=== PATIENT | male | born 1990 | race Caucasian/White ===

== ENCOUNTER 2016-10-06 20:42 | Emergency (ER) | payer SELFPAY ==
[2016-10-06 20:54] VITALS: BP 124/82
[2016-10-06] MEDS ORDERED: Acetaminophen/oxyCODONE 325-5 MG Tab PO ONE (20:57)
--- NOTE | 2016-10-06 21:15 | EDM.PDOC ---
ED HPI GENERAL MEDICAL PROBLEM - General Chief Complaint: Lower Extremity Injury/Pain Stated Complaint: Ankle injury Time Seen by Provider: 10/06/16 21:00 Source of Information: Reports: Patient, RN Notes Reviewed History Limitations: Reports: No Limitations - History of Present Illness INITIAL COMMENTS - FREE TEXT/NARRATIVE: 26 year old male presents to the ED with right ankle injury. He was playing basketball when another player landed on his ankle, causing his foot to rotate inwards. His pain is mostly to the medial aspect of the ankle. He's unable to bear weight. No numbness or tingling. Right Ankle Pain Score (Numeric/FACES): 10 - Related Data Allergies Allergy/AdvReac Type Severity Reaction Status Date / Time No Known Allergies Allergy Verified 10/06/16 20:59 Social & Family History - Tobacco Use Smoking Status *Q: Never Smoker Second Hand Smoke Exposure: Yes - Caffeine Use Caffeine Use: Reports: None - Recreational Drug Use Recreational Drug Use: No Review of Systems - Review of Systems Review Of Systems: See Below Musculoskeletal: Reports: Joint Swelling Neurological: Reports: No Symptoms. Denies: Numbness, Tingling, Weakness ED EXAM, GENERAL - Physical Exam Exam: See Below Exam Limited By: No Limitations General Appearance: Alert, WD/WN, Anxious, Mild Distress Extremities: Other (swelling with deformity to right medial malleolous, CMS intact, ) Neurological: Alert, Oriented, Normal Cognition, No Motor/Sensory Deficits Skin Exam: Warm, Dry, Intact Course - Vital Signs Last Recorded V/S: Last Vital Signs Temp 98.3 F 10/06/16 20:49 Pulse 83 10/06/16 20:49 Resp 20 10/06/16 20:49 BP 124/82 10/06/16 20:49 Pulse Ox 97 10/06/16 20:49 - Orders/Labs/Meds Orders: Active Orders 24 hr Category Date Time Status Ankle Min 3V Rt [CR] Stat Exams 10/06/16 20:57 Ordered Meds: Medications Discontinued Medications Generic Name Dose Route Start Last Admin Trade Name Freq PRN Reason Stop Dose Admin Oxycodone/Acetaminophen 1 tab 10/06/16 20:57 10/06/16 21:02 Percocet 325-5 Mg PO 10/06/16 20:58 1 tab ONETIME ONE Administration - Re-Assessments/Exams Free Text/Narrative Re-Assessment/Exam: 3 view of ankle reveals oblique fracture of distal fibula. Images sent to [facility] to evaluate for subtle tibia injury. [facility] agrees with interetation. Ankle mortis is reportedly intact with no tibia fracture. patient is from [place] and will be returning in 1 week. He was placed in CAM boot and crutches. Non-weight bearing until he sees ortho upon returning home. [facility] PRN #30. Departure - Departure Time of Disposition: 22:24 Disposition: Home, Self-Care 01 Condition: Good Clinical Impression: Fibula fracture Qualifiers: Encounter type: initial encounter Fibula location: shaft Fracture type: closed Fracture morphology: oblique Fracture alignment: displaced Laterality: right Qualified Code(s): S82.431A - Displaced oblique fracture of shaft of right fibula, initial encounter for closed fracture - Discharge Information Instructions: Fibular Ankle Fracture Treated With or Without Immobilization, Adult Referrals: PCP,None [Primary Care Provider] - Forms: ED Department Discharge Additional Instructions: Rest, ice and elevate No weight bearing, crutches at all times Wear walking boot at all times, may remove only to shower Ibuprofen 800mg every 8 hours as needed for mild pain Percocet 1-2 tabs every 4-6 hours as needed for more severe pain Follow-up with orthopedic surgeon of your choice upon returning to [place] - My Orders Last 24 Hours: My Active Orders 10/06/16 20:57 Ankle Min 3V Rt [CR] Stat - Assessment/Plan Last 24 Hours: My Active Orders 10/06/16 20:57 Ankle Min 3V Rt [CR] Stat
--- NOTE | 2016-10-07 10:38 | CR ---
Right ankle: Four views of the right ankle were obtained. Fracture is identified through the distal shaft of the fibula with mild displacement by slightly greater than a cortical width. Several small bony densities are seen off the posterior malleolus which are likely old. No additional fracture is seen. Soft tissue swelling is identified. Impression: 1. Mildly displaced distal fibular shaft fracture. 2. Soft tissue swelling and other incidental findings. Diagnostic code #3 Agree with preliminary report issued by [facility] ([facility] preliminary report dictated on 10/06/16, 11:07 PM Central Time)
== END 2016-10-06 23:13 | disposition home or self-care (01) ==
LOC: JD.ED 20:42
DX: S82.431A Displaced oblique fracture of shaft of right fibula, initial encounter for closed fracture (principal); X50.1XXA Overexertion from prolonged static or awkward postures, initial encounter; Y93.67 Activity, basketball
CPT/HCPCS: 73610; 99283; A9270